=== PATIENT | male | born 1955 | race Caucasian/White ===

== ENCOUNTER 2017-03-14 14:01 | Emergency (ER) | payer OTHER ==
[~2017-03-14] VITALS: Ht 182.9 cm; Wt 93.0 kg
[2017-03-14 15:19] VITALS: BP 154/91
== END 2017-03-14 16:45 | disposition home or self-care (01) ==
LOC: ER 14:13
DX: J40 Bronchitis, not specified as acute or chronic (principal); H92.03 Otalgia, bilateral; F17.200 Nicotine dependence, unspecified, uncomplicated; E11.9 Type 2 diabetes mellitus without complications; Z87.891 Personal history of nicotine dependence
CPT/HCPCS: 71010-TC; A4606; Z7610